=== PATIENT | male | born 1965 ===

== ENCOUNTER 2022-08-01 14:53 | Outpatient (CLI) | payer BC | END 2022-08-01 23:59 | disposition home or self-care (01) | LOC: CARD DIAG 14:53 | PROVIDERS: ATTEND Internal Medicine Cardiovascular Disease | DX: I35.8 Other nonrheumatic aortic valve disorders (principal); R07.89 Other chest pain | CPT/HCPCS: 93306 ==

== ENCOUNTER 2023-06-27 15:35 | Outpatient (CLI) | payer MEDICAID | END 2023-06-27 23:59 | disposition home or self-care (01) | LOC: RAD 15:35 | PROVIDERS: ATTEND Nurse Practitioner Family | DX: M25.512 Pain in left shoulder (principal) | CPT/HCPCS: 73030 ==